=== PATIENT | male | born 1995 | race Hispanic/Latino ===

== ENCOUNTER 2017-08-26 16:07 | Emergency (ER) | payer SELFPAY ==
--- NOTE | 2017-08-26 17:35 | RAD ---
THREE VIEWS OF THE RIGHT WRIST: INDICATIONS: Right wrist injury. FINDINGS: There is soft tissue swelling and gas involving the radial and palmar aspects of the wrist, suspiciou s for the presence of a laceration. No radiopaque foreign body is evident. No acute fracture is not ed. IMPRESSION: Soft tissue swelling and gas involving the right wrist may reflect changes of a laceration. No radio paque foreign body is grossly evident. No definite acute osseous abnormality is evident. POS: [facility]
[2017-08-26] MEDS ORDERED: HYDROcodone/Acetaminophen 5/325 mg Tablet ONE (17:36)
[2017-08-26] MEDS ORDERED: Rabies Vaccine Human 2.5 UNITS VIAL IM ONE (17:45)
[2017-08-26] MEDS ORDERED: Rabies Immune Globulin 1500 UNITS/10 ML VIAL IM SCH (17:45)
== END 2017-08-26 19:10 | disposition home or self-care (01) ==
LOC: ERS 16:07
DX: S61.551A Open bite of right wrist, initial encounter (principal); F90.9 Attention-deficit hyperactivity disorder, unspecified type; F31.9 Bipolar disorder, unspecified; W54.0XXA Bitten by dog, initial encounter
CPT/HCPCS: 90375; 90471; 90675